=== PATIENT | female | born 1970 | race Caucasian/White ===

== ENCOUNTER 2021-06-13 08:57 | Emergency (ER) | payer BC ==
[2021-06-13] MEDS ORDERED: Acetaminophen/HYDROcodone 325-7.5 MG Tab PO PRN (10:39)
[2021-06-13] MEDS ORDERED: Gabapentin 300 MG Cap PO ONE (11:45)
== END 2021-06-13 12:20 ==
LOC: FB.ED 08:57
DX: S73.004A Unspecified dislocation of right hip, initial encounter (principal); F10.10 Alcohol abuse, uncomplicated; E87.1 Hypo-osmolality and hyponatremia; D75.89 Other specified diseases of blood and blood-forming organs; W01.0XXA Fall on same level from slipping, tripping and stumbling without subsequent striking against object, initial encounter; Y92.002 Bathroom of unspecified non-institutional (private) residence as the place of occurrence of the external cause
CPT/HCPCS: 36415; 73502; 80053; 82550; 85025; 99283; 99284; A9270